=== PATIENT | female | born 1960 | race Two or more races ===

== ENCOUNTER → 2025-01-29 | Outpatient (CLI) | payer MEDICAID, SELFPAY ==
--- NOTE | 2025-01-29 09:30 | XR_ITS ---
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 AP supine abdomen demonstrates nonobstructive bowel gas pattern Patient swallowed thin barium with 27 spot fluoroscopic films obtained of the esophagus stomach duodenal bulb and sweep Fluoroscopy 0.22 minutes Primary peristaltic esophageal waves Numerous secondary and tertiary esophageal contractions Moderate intermittent gastroesophageal reflux Small sliding esophageal hernia No constricting esophageal lesion Mucosal thickening in the body and antrum of the stomach without definite ulcer crater Duodenal bulb expands symmetrically Duodenal sweep normal Normal jejunal and ileal loops with contrast in the right colon at 45 minutes IMPRESSION: Significant esophageal dysmotility Moderate intermittent gastroesophageal reflux Small sliding esophageal hernia Significant mucosal fold thickening in the body and antrum of the stomach, consider gastritis, consider endoscopy follow-up Negative for active peptic disease duodenum Normal small bowel
== END | disposition home or self-care (01) ==
PROVIDERS: Referring Provider Physician Assistant; Visit Provider Physician Assistant
DX: K21.9 Gastro-esophageal reflux disease without esophagitis (principal); K44.9 Diaphragmatic hernia without obstruction or gangrene; K31.89 Other diseases of stomach and duodenum
CPT/HCPCS: 74240; 74248; A4699; A9270